=== PATIENT | female | born 1965 ===

== ENCOUNTER 2016-10-07 22:09 | Emergency (ER) | payer MEDICAID, SELFPAY ==
[2016-10-07 22:45] VITALS: BP 140/90; PULSE 90; TEMP 97.6; O2SAT 98
--- NOTE | 2016-10-07 23:36 | C.PDOC ---
History Of Present Illness Pt is here requesting detox from alcohol. Time Seen by Provider: 10/07/16 23:18 Chief Complaint (Nursing): Substance Abuse History Per: Patient History/Exam Limitations: intoxication Onset/Duration Of Symptoms: Days Current Symptoms Are (Timing): Still Present Suicide/Self Injury Attempted (Context): None Modifying Factor(s): Alcohol Severity: Moderate Associated Symptoms: denies: Suicidal Thoughts, Suicidal Plan Additional History Per: Prior Records Past Medical History Reviewed: Historical Data, Nursing Documentation, Vital Signs Vital Signs: Last Vital Signs Temp 97.6 F 10/07/16 22:20 Pulse 90 10/07/16 22:20 Resp 16 10/07/16 22:20 BP 140/90 10/07/16 22:20 Pulse Ox 98 10/07/16 23:36 - Medical History PMH: Asthma, Bipolar Disorder, HTN Surgical History: Back Surgery Family History: States: Unknown Family Hx - Social History Hx Tobacco Use: Yes Hx Alcohol Use: Yes Hx Substance Use: No - Immunization History Hx Tetanus Toxoid Vaccination: Yes Hx Influenza Vaccination: Yes Hx Pneumococcal Vaccination: Yes Review Of Systems Except As Marked, All Systems Reviewed And Found Negative. Constitutional: Negative for: Fever Cardiovascular: Negative for: Chest Pain Respiratory: Negative for: Hemoptysis Gastrointestinal: Negative for: Vomiting, Abdominal Pain Musculoskeletal: Negative for: Neck Pain Neurological: Negative for: Weakness, Numbness, Seizures Physical Exam - Physical Exam Appears: Non-toxic, No Acute Distress, Other (AOB) Skin: Normal Color, Warm, Dry Head: Atraumatic, Normacephalic Eye(s): bilateral: PERRL, EOMI Neck: Normal ROM, No Midline Cervical Tenderness, No Step Off Deformity, Supple Chest: Symmetrical, No Deformity Cardiovascular: Rhythm Regular Respiratory: Normal Breath Sounds, No Accessory Muscle Use Gastrointestinal/Abdominal: Soft, No Tenderness Back: Other (Surgical scan on lower back) Extremity: Normal ROM, No Deformity Neurological/Psych: Oriented x3, Normal Motor, Normal Sensation ED Course And Treatment O2 Sat by Pulse Oximetry: 98 Pulse Ox Interpretation: Normal Progress Note: I ordered labs for the medical clearance for the detox program. However, I was informed by the staff that the pt had walked out during evaluation and prior to any labs being drawn. Disposition - Disposition Disposition: ELOPEMENT - ER ONLY Disposition Time: 00:57 Condition: FAIR - Clinical Impression Clinical Impression: Alcohol abuse, Patient left before treatment completed
[2016-10-08 01:16] VITALS: RESP 20
== END 2016-10-08 01:15 | disposition left against medical advice (07) ==
LOC: C.ER 22:09
DX: F10.10 Alcohol abuse, uncomplicated (principal); Y90.9 Presence of alcohol in blood, level not specified

== ENCOUNTER 2016-10-13 18:28 | Emergency (ER) | payer MEDICAID ==
[2016-10-13 18:41] VITALS: RESP 20
--- NOTE | 2016-10-13 18:55 | C.PDOC ---
History Of Present Illness 50 yr old female presents to the ER stating she has chronic low back and had surgery in August of this year, after physical therapy 2 days ago she started having some pain which has worsened. Patient denies any new trauma, use of pain medication, chest pain, SOB, dysuria, urinary or bowel incontinence, leg pain, weakness or numbness. Time Seen by Provider: 10/13/16 18:54 Chief Complaint (Nursing): Back Pain History Per: Patient History/Exam Limitations: no limitations Onset/Duration Of Symptoms: Days (2) Current Symptoms Are (Timing): Still Present Past Medical History Reviewed: Historical Data, Nursing Documentation, Vital Signs Vital Signs: Last Vital Signs Temp 98.4 F 10/13/16 19:47 Pulse 104 H 10/13/16 19:47 Resp 20 10/13/16 19:47 BP 110/70 10/13/16 19:47 Pulse Ox 95 10/13/16 19:53 - Medical History PMH: Asthma, Bipolar Disorder, HTN Surgical History: Back Surgery Family History: States: No Known Family Hx - Social History Hx Tobacco Use: Yes Hx Alcohol Use: No Hx Substance Use: No - Immunization History Hx Tetanus Toxoid Vaccination: Yes Hx Influenza Vaccination: Yes Hx Pneumococcal Vaccination: Yes Review Of Systems Except As Marked, All Systems Reviewed And Found Negative. Cardiovascular: Negative for: Chest Pain Respiratory: Negative for: Shortness of Breath Genitourinary: Negative for: Dysuria, Incontinence Musculoskeletal: Positive for: Back Pain (Low back pain). Negative for: Leg Pain Neurological: Negative for: Weakness, Numbness Physical Exam - Physical Exam Appears: Well, Non-toxic, No Acute Distress Skin: Warm, Dry Head: Atraumatic, Normacephalic Eye(s): bilateral: Normal Inspection, PERRL, EOMI Oral Mucosa: Moist Neck: Normal, Normal ROM, Supple Chest: Symmetrical, No Tenderness Cardiovascular: Rhythm Regular, No Murmur Respiratory: Normal Breath Sounds, No Rales, No Rhonchi, No Stridor, No Wheezing Back: Other (Well healing scar on the L spine. No signs of infection. ) Extremity: Normal ROM, No Swelling Neurological/Psych: Oriented x3, Normal Speech ED Course And Treatment O2 Sat by Pulse Oximetry: 95 Progress Note: Patient was noted to tachycardic upon discharge and was advised to have an EKG. While having the EKG done patient became uncoopertive and got hostile with the CP. Patient left without EKG. Medical Decision Making Medical Decision Making: PLAN: * EKG * Flexeril PO * Toradol IM Disposition Counseled Patient/Family Regarding: Studies Performed, Diagnosis, Need For Followup, Rx Given - Disposition Referrals: Non [facility] Provider, [Non-Staff] - Disposition: HOME/ ROUTINE Disposition Time: 19:44 Condition: SERIOUS Additional Instructions: FOLLOW UP WITH PMD IN 1-2 DAYS FOR RE-EVALUATION. IF SYMPTOMS GET WORSE, URINARY/BOWEL INCONTINENCE, LEG WEAKNESS/NUMBNESS OR ANY NEW CONCERNING SYMPTOMS DEVELOP RETURN TO ED. Prescriptions: Ibuprofen [Motrin Tab] 1 tab PO Q6H PRN #15 tab PRN Reason: Pain, Moderate (4-7) Instructions: Chronic Back Pain (ED) Forms: General Discharge Instructions - Clinical Impression Clinical Impression: Low back pain - PA / [employer] / Resident Statement MD/DO has reviewed & agrees with the documentation as recorded. - Scribe Statement The provider has reviewed the documentation as recorded by the Scribe Lillie La All medical record entries made by the Scribe were at my direction and personally dictated by me. I have reviewed the chart and agree that the record accurately reflects my personal performance of the history, physical exam, medical decision making, and the department course for this patient. I have also personally directed, reviewed, and agree with the discharge instructions and disposition.
[2016-10-13 19:47] VITALS: BP 110/70; PULSE 104; TEMP 98.4
[2016-10-13 19:55] VITALS: O2SAT 95
== END 2016-10-13 20:09 | disposition home or self-care (01) ==
LOC: C.ER 18:28
DX: M54.5 Low back pain (principal)
CPT/HCPCS: 96372; 99283; J1885